=== PATIENT | female | born 1955 | race Two or more races ===

== ENCOUNTER 2016-07-27 07:22 | Emergency (ER) | payer OTHER ==
[~2016-07-27] VITALS: Ht 157.5 cm; Wt 66.2 kg
[2016-07-27 07:33] VITALS: BP 152/88
[2016-07-27] MEDS ORDERED: AMOX1TAB61 PO (08:15)
--- NOTE | 2016-07-27 08:16 | PHYS DOC ---
Past Medical History Past Medical History: High Cholesterol, Hypothyroid Past Surgical History: No Surgical History Alcohol Use: None Drug Use: None Adult General Chief Complaint Chief Complaint: EARACHE/EAR PAIN HPI HPI Patient is a 60 year old female with history of high poor thyroidism and high cholesterol who presents today with mild right ear pain, nasal congestion, sinus pressure, that began one week ago. Patient states she has tried Sudafed with no relief. Review of Systems Review of Systems Constitutional: Denies fever or chills [] Eyes: Denies change in visual acuity, redness, or eye pain [] HENT: Nasal congestion, right ear pain Respiratory: Denies cough or shortness of breath [] Cardiovascular: No additional information not addressed in HPI [] GI: Denies abdominal pain, nausea, vomiting, bloody stools or diarrhea [] : Denies dysuria or hematuria [] Musculoskeletal: Denies back pain or joint pain [] Integument: Denies rash or skin lesions [] Neurologic: Denies headache, focal weakness or sensory changes [] Endocrine: Denies polyuria or polydipsia [] Allergies Allergies Allergies Coded Allergies Type Severity Reaction Last Updated Verified No Known Drug Allergies 07/27/16 No Physical Exam Physical Exam Constitutional: Well developed, well nourished, no acute distress, non-toxic appearance. [] HENT: Normocephalic, atraumatic, bilateral external ears normal, oropharynx moist, no oral exudates, nose normal. [] Bilateral TM are mildly injected with small amount of cloudy fluid in the left TM Bilateral nasal turbinates are erythematous, mild frontal and maxillary sinus tenderness. Eyes: PERRLA, EOMI, conjunctiva normal, no discharge. [] Neck: Normal range of motion, no tenderness, supple, no stridor. [] Cardiovascular:Heart rate regular rhythm, no murmur [] Lungs & Thorax: Bilateral breath sounds clear to auscultation [] Abdomen: Bowel sounds normal, soft, no tenderness, no masses, no pulsatile masses. [] Skin: Warm, dry, no erythema, no rash. [] Back: No tenderness, no CVA tenderness. [] Extremities: No tenderness, no cyanosis, no clubbing, ROM intact, no edema. [] Neurologic: Alert and oriented X 3, normal motor function, normal sensory function, no focal deficits noted. [] Psychologic: Affect normal, judgement normal, mood normal. [] Current Patient Data Vital Signs Vital Signs Date Time Temp Pulse Resp B/P Pulse Ox O2 Delivery O2 Flow Rate FiO2 07/27/16 07:33 98.1 86 18 96 Room Air 98.1 EKG EKG [] Radiology/Procedures Radiology/Procedures [] Course & Med Decision Making Course & Med Decision Making Pertinent Labs and Imaging studies reviewed. (See chart for details) Patient has bilateral otitis media and a sinus infection. Discharged with Flonase and Augmentin. Instructed to continue using a decongestant. Provided return precautions and discharged in stable condition. Dragon Disclaimer Dragon Disclaimer This electronic medical record was generated, in whole or in part, using a voice recognition dictation system. Departure Departure Impression: Primary Impression: Bilateral otitis media Additional Impression: Acute sinusitis Disposition: HOME, SELF-CARE Condition: STABLE Referrals: ANAI CLEMONS MD (PCP) Follow-up with your doctor in one week Patient Instructions: Sinusitis, [id number] Additional Instructions: You were seen for sinus infection and ear infection. Please complete your antibiotics. Use the prescribed Flonase as ordered. Follow-up with your doctor in one week. Come back to the ED at any point symptoms worsen. Scripts Amoxicillin/Potassium Clav (Augmentin 875-125 Tablet)1 Each Tablet1 Tab PO BID # 19 TAB Prov:CARLOS BRODY APRN 07/27/16 Problem Qualifiers Primary Impression: Bilateral otitis media Otitis media type: other nonsuppurative Chronicity: acute Recurrence: not specified as recurrent Qualified Code: H65.193 - Other acute nonsuppurative otitis media, bilateral Additional Impression: Acute sinusitis Sinusitis location: frontal Recurrence: not specified as recurrent Qualified Code: J01.10 - Acute frontal sinusitis, unspecified CARLOS BRODY APRN Jul 27, 2016 08:15
[2016-07-27] MEDS ORDERED: AMOXICILLIN/K CLAV 875/125MG TABLET. PO ONE (08:30)
[2016-07-27] MEDS ORDERED: FLUTICASONE 50MCG/NASAL SPRAY 16GM BOTTLE. NS SCH (09:00)
== END 2016-07-27 08:28 | disposition home or self-care (01) ==
LOC: ER 07:22
DX: H65.193 Other acute nonsuppurative otitis media, bilateral (principal); J01.10 Acute frontal sinusitis, unspecified; J01.00 Acute maxillary sinusitis, unspecified; E78.00 Pure hypercholesterolemia, unspecified; E03.9 Hypothyroidism, unspecified
CPT/HCPCS: 99283